=== PATIENT | male | born 1960 | race Caucasian/White ===

== ENCOUNTER 2017-10-09 10:26 | Emergency (ER) | payer MEDICAID ==
[~2017-10-09] VITALS: Ht 167.6 cm; Wt 70.8 kg
[2017-10-09 10:26] VITALS: BP 134/77
[2017-10-09] MEDS ORDERED: CYCLOBENZAPRINE 10 MG TABLET PO ONE (11:30)
[2017-10-09] MEDS ORDERED: IBUPROFEN 600 MG TABLET PO ONE ×2 (11:30)
[2017-10-09] MEDS ORDERED: CYCLOBENZAPRINE 10 MG TABLET ONE (11:30)
== END 2017-10-09 13:36 | disposition home or self-care (01) ==
LOC: ER 10:32
DX: M54.5 Low back pain (principal); F41.9 Anxiety disorder, unspecified
CPT/HCPCS: 72110-TC; A4606; Z7610

== ENCOUNTER 2018-04-18 09:29 | Emergency (ER) | payer MEDICAID ==
[~2018-04-18] VITALS: Ht 180.3 cm; Wt 88.5 kg
--- NOTE | 2018-04-18 09:35 | NUR ---
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 PATIENT ALSO C/O LEFT SIDED CHEST PAIN. SKIN IS WARM AND DRY. RESP IS EVEN AND UNLABORED WITH NAD NOTED. AWAITING MD FOR EVAL.
--- NOTE | 2018-04-18 09:40 | NUR ---
DR JOSÉ AT FOR JIMAL.
[2018-04-18 09:54] LABS: RDW COEFFICIENT OF VARIATION 12.6 (11.5-15.0)
[2018-04-18 09:57] LABS: BASOPHILS % (AUTO) 0.4 % (0.0-2.0); EOSINOPHILS % (AUTO) 0.7 % (0.0-6.0); HEMATOCRIT 44 % (39-51); HEMOGLOBIN 15.1 g/dL (13.5-17.5); LYMPHOCYTES # (AUTO) 2.3 /CMM (0.8-4.8); LYMPHOCYTES % (AUTO) 26.4 % (20.0-44.0); MEAN CORPUSCULAR HGB CONC 34 g/dl (31.0-36.0); MEAN CORPUSCULAR VOLUME 89 fL (80-96); MONOCYTES # (AUTO) 0.9 /CMM (0.1-1.30); MONOCYTES % (AUTO) 9.8 % (2.0-12.0); NEUTROPHILS # (AUTO) 5.5 /CMM (1.8-8.9); NEUTROPHILS % (AUTO) 62.7 % (43.0-81.0); RED BLOOD CELL COUNT(AUTO) 4.96 MIL/uL (4.5-6.0); WHITE BLOOD COUNT (AUTO) 8.8 K/uL (4.3-11.0)
[2018-04-18 10:02] LABS: PLATELET COUNT (AUTO) 177 /CMM (150-450)
[2018-04-18 10:03] LABS: CALCIUM, SERUM 9.1 mg/dL (8.5-10.1); CARBON DIOXIDE 29 mmol/L (21-32); CHLORIDE 103 mmol/L (98-107); CREATININE 1.1 mg/dL (0.6-1.3); GLUCOSE 102 mg/dL (74-106); POTASSIUM 3.9 mmol/L (3.5-5.1); SODIUM SERUM 137 mmol/L (136-145); UREA NITROGEN, BLOOD 22 mg/dL (7-18)
--- NOTE | 2018-04-18 10:03 | NUR ---
PATIENT TRANSPORTED FOR CT HEAD VIA WHEELCHAIR.
[2018-04-18 10:08] LABS: INR 0.93 (0.85-1.15)
[2018-04-18 10:13] LABS: TROPONIN I < 0.017 ng/mL (0.00-0.056)
--- NOTE | 2018-04-18 10:55 | NUR ---
IV removed. Catheter intact and site benign. Pressure and 4x4 applied to site. No bleeding noted.
--- NOTE | 2018-04-18 11:00 | NUR ---
Patient discharged to home in stable condition. Written and verbal after care instructions given. Patient verbalizes understanding of instruction.
[2018-04-18 11:01] VITALS: BP 135/64
== END 2018-04-18 11:03 | disposition home or self-care (01) ==
LOC: ER 09:33
DX: R20.2 Paresthesia of skin (principal); F41.9 Anxiety disorder, unspecified; R07.9 Chest pain, unspecified; R79.1 Abnormal coagulation profile; Z60.2 Problems related to living alone
CPT/HCPCS: 36415; 70450-TC; 71045-TC; 80048-TC; 84484-TC; 85025-TC; 85730-TC; A4606; Z7610

== ENCOUNTER 2021-11-15 13:49 | Emergency (ER) | payer MEDICAID ==
[~2021-11-15] VITALS: Ht 172.7 cm; Wt 70.8 kg
--- NOTE | 2021-11-15 14:39 | NUR ---
DR GALARZA AT BEDSIDE FOR EVAL.
--- NOTE | 2021-11-15 14:39 | NUR ---
DR GALARZA AT BEDSIDE FOR EVAL.
--- NOTE | 2021-11-15 14:50 | NUR ---
IV LINE STARTED BLOOD DRAWN. LAB CALLED FOR BOAT OUTBOARD ENGINE MECHANIC.
--- NOTE | 2021-11-15 14:50 | NUR ---
IV LINE STARTED BLOOD DRAWN. LAB CALLED FOR SENIOR NETWORK ENGINEER.
--- NOTE | 2021-11-15 14:51 | NUR ---
RADIOLOGY AT BEDSIDE FOR CHEST XRAY.
--- NOTE | 2021-11-15 14:51 | NUR ---
RADIOLOGY AT BEDSIDE FOR CHEST XRAY.
[2021-11-15] MEDS ORDERED: KETOROLAC TROMETHAMINE INJ 30 MG/ML VIAL IV ONE (15:00)
[2021-11-15 15:26] LABS: BASOPHILS % (AUTO) 0.2 % (0.0-2.0); EOSINOPHILS % (AUTO) 0.2 % (0.0-6.0); HEMATOCRIT 43 % (39-51); HEMOGLOBIN 14.9 g/dL (13.5-17.5); LYMPHOCYTES # (AUTO) 1.3 K/uL (0.8-4.8); LYMPHOCYTES % (AUTO) 15.5 % (20.0-44.0); MEAN CORPUSCULAR HGB CONC 35 g/dl (31.0-36.0); MEAN CORPUSCULAR VOLUME 92 fL (80-96); MONOCYTES # (AUTO) 0.7 K/uL (0.1-1.30); MONOCYTES % (AUTO) 8.4 % (2.0-12.0); NEUTROPHILS # (AUTO) 6.3 K/uL (1.8-8.9); NEUTROPHILS % (AUTO) 75.7 % (43.0-81.0); PLATELET COUNT (AUTO) 181 K/uL (150-450); RED BLOOD CELL COUNT(AUTO) 4.68 MIL/uL (4.5-6.0); WHITE BLOOD COUNT (AUTO) 8.4 K/uL (4.3-11.0)
[2021-11-15 15:28] LABS: CALCIUM, SERUM 8.5 mg/dL (8.5-10.1); CARBON DIOXIDE 25 mmol/L (21-32); CHLORIDE 103 mmol/L (98-107); CREATININE 1.2 mg/dL (0.6-1.3); GLUCOSE 93 mg/dL (74-106); POTASSIUM 3.9 mmol/L (3.5-5.1); SODIUM SERUM 138 mmol/L (136-145); UREA NITROGEN, BLOOD 20 mg/dL (7-18)
[2021-11-15] MEDS ORDERED: KETOROLAC TROMETHAMINE 15 MG/ML VIAL ONE (15:49)
[2021-11-15] MEDS ORDERED: IBUP-1955 PO (17:03)
[2021-11-15] MEDS ORDERED: CYCL5TAB PO (17:03)
--- NOTE | 2021-11-15 17:18 | NUR ---
Patient discharged to home in stable condition. Written and verbal after care instructions given. Patient verbalizes understanding of instruction.IV removed. Catheter intact and site benign. Pressure and 4x4 applied to site. No bleeding noted.
[2021-11-15 17:58] VITALS: BP 130/83
== END 2021-11-15 17:12 | disposition home or self-care (01) ==
LOC: ER 13:52
DX: S16.1XXA Strain of muscle, fascia and tendon at neck level, initial encounter (principal); S46.812A Strain of other muscles, fascia and tendons at shoulder and upper arm level, left arm, initial encounter; R07.89 Other chest pain; F41.9 Anxiety disorder, unspecified; X58.XXXA Exposure to other specified factors, initial encounter; Y93.89 Activity, other specified; Y92.89 Other specified places as the place of occurrence of the external cause; Y99.8 Other external cause status
CPT/HCPCS: 36415; 71045; 80048; 84484; 85025; 93005 ×2; 96374; 99285; J1885

== ENCOUNTER 2024-02-20 12:42 | Emergency (ER) | payer MEDICAID ==
[~2024-02-20] VITALS: Ht 180.3 cm; Wt 79.4 kg
[~2024-02-20 12:42] MED LIST: CYCL5TAB PO; IBUP-1955 PO
[2024-02-20] MEDS: IV NS 0.9% 1,000 ML BAG IV ONE (13:00)
[2024-02-20 13:56] LABS: BASOPHILS # (AUTO) 0.1 K/uL (0.0-0.2); BASOPHILS % (AUTO) 0.9 % (0.0-2.0); EOSINOPHILS % (AUTO) 0.5 % (0.0-6.0); HEMATOCRIT 42 % (39-51); HEMOGLOBIN 13.8 g/dL (13.5-17.5); LYMPHOCYTES # (AUTO) 1.3 K/uL (0.8-4.8); LYMPHOCYTES % (AUTO) 21.5 % (20.0-44.0); MEAN CORPUSCULAR HEMOGLOBIN 31 PG (26.0-33.0); MEAN CORPUSCULAR HGB CONC 33 g/dl (31.0-36.0); MEAN CORPUSCULAR VOLUME 92 fL (80-96); MONOCYTES # (AUTO) 0.6 K/uL (0.1-1.30); MONOCYTES % (AUTO) 10.1 % (2.0-12.0); NEUTROPHILS # (AUTO) 3.9 K/uL (1.8-8.9); PLATELET COUNT (AUTO) 162 K/uL (150-450); RED BLOOD CELL COUNT(AUTO) 4.52 MIL/uL (4.5-6.0); RED CELL DISTRIBUTION WIDTH 13.9 % (11.5-15.0); WHITE BLOOD COUNT (AUTO) 5.9 K/uL (4.3-11.0)
[2024-02-20 14:04] LABS: CALCIUM, SERUM 8.7 mg/dL (8.5-10.1); CARBON DIOXIDE 29 mmol/L (21-32); CHLORIDE 104 mmol/L (98-107); GLUCOSE 113 mg/dL (74-106); POTASSIUM 3.7 mmol/L (3.5-5.1); SODIUM SERUM 139 mmol/L (136-145); UREA NITROGEN, BLOOD 21 mg/dL (7-18)
[2024-02-20 14:10] LABS: ALANINE AMINOTRANSFERASE 16 U/L (12-78); ALBUMIN 3.7 g/dL (3.4-5.0); ALKALINE PHOSPHATASE 92 U/L (46-116); ASPARTATE AMINOTRANSFERASE 13 U/L (15-37); BILIRUBIN,DIRECT 0.1 mg/dL (0.0-0.2); BILIRUBIN,TOTAL 0.5 mg/dL (0.2-1.0); TOTAL PROTEIN, SERUM 7.5 g/dL (6.4-8.2)
[2024-02-20 14:46] LABS: APPEARANCE,URINE CLEAR (CLEAR); BILIRUBIN,URINE NEGATIVE (NEGATIVE); BLOOD, URINE NEGATIVE Ery/uL (NEGATIVE); COLOR,URINE YELLOW (YELLOW); KETONES,URINE NEGATIVE (NEGATIVE); LEUKOCYTE ESTERASE ,URINE NEGATIVE (NEGATIVE); NITRITE, URINE NEGATIVE (NEGATIVE); PROTEIN,URINE NEGATIVE (NEGATIVE); UGLUCOSE NEGATIVE (NEGATIVE); UROBILINOGEN,URINE 0.2 EU/dL (0.2)
[2024-02-20 15:43] VITALS: BP 138/77; TEMP 98.6; O2SAT 100
== END 2024-02-20 15:43 | disposition home or self-care (01) ==
LOC: ER 12:46
DX: R55 Syncope and collapse (principal); R51.9 Headache, unspecified; E86.0 Dehydration; F41.9 Anxiety disorder, unspecified; Z60.2 Problems related to living alone
CPT/HCPCS: 99285; 96360; 70450; 71045; 93005; 85025; 80048; 80076; 81003; 36415; 84484; J7030

== ENCOUNTER 2024-02-26 11:53 | Emergency (ER) | payer MEDICAID ==
[~2024-02-26] VITALS: Ht 170.2 cm; Wt 80.3 kg
[2024-02-26] MEDS: IBUPROFEN 600 MG TABLET PO ONE (13:32)
[2024-02-26] MEDS ORDERED: IBUPROFEN 600 MG TABLET ONE (13:33)
[2024-02-26 13:54] VITALS: BP 130/89; TEMP 98.9; O2SAT 96
== END 2024-02-26 13:54 | disposition home or self-care (01) ==
LOC: ER 11:59
DX: R20.2 Paresthesia of skin (principal); F41.9 Anxiety disorder, unspecified; Z60.2 Problems related to living alone

== ENCOUNTER 2025-05-18 21:14 | Emergency (ER) | payer MEDICAID ==
[~2025-05-18] VITALS: Ht 175.3 cm; Wt 72.6 kg
[2025-05-18 21:28] VITALS: TEMP 98.2
[2025-05-18 21:54] LABS: PLATELET COUNT (AUTO) 172 K/uL (150-450); RED BLOOD CELL COUNT(AUTO) 4.62 MIL/uL (4.5-6.0); RED CELL DISTRIBUTION WIDTH 13.7 % (11.5-15.0); WHITE BLOOD COUNT (AUTO) 7.1 K/uL (4.3-11.0)
[2025-05-18] MEDS ORDERED: ASPIRIN 81 MG TAB.CHEW ONE (22:07)
[2025-05-18 22:09] LABS: CALCIUM, SERUM 8.8 mg/dL (8.5-10.1); CREATININE 1.0 mg/dL (0.6-1.3); SODIUM SERUM 137 mmol/L (136-145); UREA NITROGEN, BLOOD 16 mg/dL (7-18)
[2025-05-18] MEDS: ASPIRIN 81 MG TAB.CHEW PO ONE (22:09)
[2025-05-18 22:18] LABS: ASPARTATE AMINOTRANSFERASE 13 U/L (15-37); NT-PRO BNP 94 pg/mL (0-125); TOTAL PROTEIN, SERUM 7.7 g/dL (6.4-8.2)
[2025-05-18 23:18] VITALS: BP 142/84; O2SAT 97
== END 2025-05-18 23:18 | disposition home or self-care (01) ==
LOC: ER 21:16
DX: R07.9 Chest pain, unspecified (principal); R20.2 Paresthesia of skin; R06.02 Shortness of breath; Z60.2 Problems related to living alone
CPT/HCPCS: 36415; 71045-TC; 80048-TC; 80076-TC; 83880; 84484-TC; 85025-TC; 85378-TC

== ENCOUNTER 2025-06-19 04:54 | Emergency (ER) | payer MEDICAID ==
[~2025-06-19] VITALS: Ht 180.3 cm; Wt 75.7 kg
[2025-06-19 06:50] LABS: PLATELET COUNT (AUTO) 183 K/uL (150-450); RED BLOOD CELL COUNT(AUTO) 5.25 MIL/uL (4.5-6.0); RED CELL DISTRIBUTION WIDTH 13.6 % (11.5-15.0); WHITE BLOOD COUNT (AUTO) 7.2 K/uL (4.3-11.0)
[2025-06-19 07:07] LABS: ASPARTATE AMINOTRANSFERASE 15 U/L (15-37); CALCIUM, SERUM 9.3 mg/dL (8.5-10.1); CREATININE 1.1 mg/dL (0.6-1.3); NT-PRO BNP 66 pg/mL (0-125); SODIUM SERUM 140 mmol/L (136-145); TOTAL PROTEIN, SERUM 8.3 g/dL (6.4-8.2); UREA NITROGEN, BLOOD 15 mg/dL (7-18)
[2025-06-19 09:21] VITALS: BP 143/80; TEMP 98.5; O2SAT 100
== END 2025-06-19 08:53 | disposition home or self-care (01) ==
LOC: ER 05:02
DX: R20.2 Paresthesia of skin (principal); R06.02 Shortness of breath; Z60.2 Problems related to living alone; Z79.899 Other long term (current) drug therapy
CPT/HCPCS: 36415; 71045-TC; 80048-TC; 80076-TC; 82962-TC; 83880; 84484-TC; 85025-TC

== ENCOUNTER 2025-06-24 15:38 | Emergency (ER) | payer MEDICAID ==
[~2025-06-24] VITALS: Ht 180.3 cm; Wt 79.4 kg
[2025-06-24 15:48] VITALS: TEMP 98.3
[2025-06-24] MEDS ORDERED: KETOROLAC TROMETHAMINE INJ 30 MG/ML VIAL ONE (16:10)
[2025-06-24] MEDS ORDERED: CYCLOBENZAPRINE 10 MG TABLET ONE (16:10)
[2025-06-24] MEDS ORDERED: CYCL5TAB PO (16:13)
[2025-06-24] MEDS: CYCLOBENZAPRINE 10 MG TABLET PO ONE (16:23)
[2025-06-24] MEDS: KETOROLAC TROMETHAMINE INJ 30 MG/ML VIAL IM ONE (16:26)
[2025-06-24 16:55] VITALS: BP 141/85
[2025-06-24 17:00] VITALS: O2SAT 96
== END 2025-06-24 17:03 | disposition home or self-care (01) ==
LOC: ER 15:39
DX: M54.9 Dorsalgia, unspecified (principal); F41.9 Anxiety disorder, unspecified; Z60.2 Problems related to living alone; Z79.899 Other long term (current) drug therapy
CPT/HCPCS: 99283; 96372; J1885